=== PATIENT | female | born 1965 | race Caucasian/White ===

== ENCOUNTER 2016-10-11 07:54 | Outpatient (CLI) | payer OTHER | END 2016-10-11 18:44 | disposition home or self-care (01) | LOC: SRD 07:54 | DX: K21.9 Gastro-esophageal reflux disease without esophagitis (principal) | CPT/HCPCS: 74220-TC; 74246 ==

== ENCOUNTER 2018-03-18 09:22 | Inpatient (IN) | payer OTHER ==
[~2018-03-18] VITALS: Ht 162.6 cm; Wt 90.7 kg
[2018-03-18 09:26] VITALS: BP_SYST 127
--- NOTE | 2018-03-18 09:30 | NUR ---
supervisor shuttle fitting Pt complaining of upper center abdominal pain 04/20, radiating down to her right lower back. AA&Ox4, speaks Turkmen and is cooperative. VS stable on room air, no SOB, breathing equal and unlabored. Pt ambulates without assist. Pt's at bedside.
--- NOTE | 2018-03-18 09:30 | NUR ---
Ambulatory to bed 6
--- NOTE | 2018-03-18 09:38 | NUR ---
VS stable on room air, PT complaining of sharp upper abdominal pain 9/10 which radiates to lower right back
--- NOTE | 2018-03-18 09:39 | NUR ---
Dr. Rodriguez at bedside, assessing PT
[2018-03-18] MEDS ORDERED: NACL 0.9% 1,000 ML IV ONE (09:44)
[2018-03-18] MEDS ORDERED: MORPHINE 4 MG/ML INJ. SYRINGE IVP ONE (09:45)
[2018-03-18] MEDS ORDERED: ONDANSETRON HCL 4 MG/2 ML VIAL IVP ONE (09:45)
[2018-03-18 10:04] LABS: BILIRUBIN,URINE NEGATIVE (NEGATIVE); CLARITY/URINE CLEAR (CLEAR); COLOR,URINE YELLOW (YELLOW); GLUCOSE,URINE NEGATIVE (NEGATIVE); KETONES,URINE NEGATIVE (NEGATIVE); LEUKOCYTE ESTERASE ,URINE NEGATIVE (NEGATIVE); NITRITE, URINE NEGATIVE (NEGATIVE); PROTEIN URINE NEGATIVE (NEGATIVE); UROBILINOGEN,URINE 0.2 (0.2-1.0)
[2018-03-18 10:05] LABS: BLOOD, URINE TRACE (NEGATIVE)
[2018-03-18 10:09] LABS: BASOPHILS # (AUTO) 0.1 K/uL (0.0-0.2); BASOPHILS % (AUTO) 0.6 % (0.0-2.0); EOSINOPHILS # (AUTO) 0.1 K/uL (0.0-0.4); EOSINOPHILS % (AUTO) 0.4 % (0.0-4.0); HEMATOCRIT 39.7 % (36-48); HEMOGLOBIN 13.7 g/dL (12.0-16.0); LYMPHOCYTES # (AUTO) 1.2 K/uL (1.0-5.5); LYMPHOCYTES % (AUTO) 8.5 % (20.5-51.5); MEAN CORPUSCULAR HEMOGLOBIN 32 pg (27-31); MEAN CORPUSCULAR HGB CONC 34 % (32-36); MEAN CORPUSCULAR VOLUME 92 fL (79.0-98.0); MONOCYTES # (AUTO) 0.6 K/uL (0.0-1.0); MONOCYTES % (AUTO) 4.4 % (1.7-9.3); NEUTROPHILS # (AUTO) 12.6 K/uL (1.8-7.7); NEUTROPHILS % (AUTO) 86.1 % (40.0-70.0); PLATELET COUNT (AUTO) 264 K/uL (130-430); RED BLOOD CELL COUNT(AUTO) 4.32 MIL/uL (4.2-6.2); RED CELL DISTRIBUTION WIDTH 12.4 % (9.0-15.0); WHITE BLOOD COUNT (AUTO) 14.6 K/uL (4.8-10.8)
[2018-03-18 10:13] LABS: CREATININE 0.85 mg/dL (0.55-1.30); POTASSIUM 3.8 mmol/L (3.5-5.1)
[2018-03-18 10:19] LABS: ALBUMIN 3.4 g/dL (3.4-4.8); TOTAL BILIRUBIN 0.8 mg/dL (0.0-1.0)
[2018-03-18] MEDS ORDERED: BUPR300T55 PO (10:28)
[2018-03-18] MEDS ORDERED: ARIP20TA4 PO (10:29)
[2018-03-18] MEDS ORDERED: LAMO200T2 PO (10:33)
[2018-03-18] MEDS ORDERED: TRAZ-123 PO (10:33)
[2018-03-18] MEDS ORDERED: BUSP5TAB3 PO (10:33)
[2018-03-18] MEDS ORDERED: PRAZ5CAP2 PO (10:33)
[2018-03-18] MEDS ORDERED: [UNRECOGNIZED DRUG - CODE] PO (10:38)
[2018-03-18] MEDS ORDERED: DITXL5 PO (10:38)
[2018-03-18] MEDS ORDERED: LIP40 PO (10:38)
[2018-03-18] MEDS ORDERED: HYDR12.55 PO (10:38)
--- NOTE | 2018-03-18 10:40 | NUR ---
pt off unit to radiology
[2018-03-18] MEDS ORDERED: FEXO-25 PO (10:41)
[2018-03-18] MEDS ORDERED: ASA81 PO (10:41)
--- NOTE | 2018-03-18 10:48 | NUR ---
pt returned from radiology to bed 6
[2018-03-18] MEDS ORDERED: PANTOPRAZOLE SODIUM 40 MG/VIAL (PROTONIX) IVP ONE (11:45)
--- NOTE | 2018-03-18 11:52 | NUR ---
Ultrasound at bedside.
--- NOTE | 2018-03-18 12:14 | NUR ---
ADMISSION NOTE Received patient from ER via maame, received report from Odell ELIZABETH. Patient admitted with diagnosis of Acute appendicitis. Patient oriented to hospital routine, call light, toileting and safety-patient verbalized understanding. Addendum: 03/18/18 at 1256 by Kizzy Johnson RN Patient educated on pain management, safety; pre operative health teaching early ambulation , use of incentive spirometer , proper handwashing ,incision care., activity verbalized understanding.
--- NOTE | 2018-03-18 12:20 | NUR ---
Patient will be admitted to care of Dr. Clements. Admitted to medsur unit. Will go to room 134a. Belongings list completed. Summary report printed. Report will be given at bedside. Transfer to [facility]. IV present no sign or symptom of infiltration.
[2018-03-18 12:25] VITALS: BP_SYST 124
[2018-03-18] MEDS: MORPHINE 4 MG/ML INJ. SYRINGE IVP PRN ×2 (12:43→21:44)
--- NOTE | 2018-03-18 13:13 | NUR ---
Initial physical notes: Patient alert, awake and oriented. Stable. Ambulatory. Incision site of L breast healed from surgery last January 2018. Skin intact, no skin issues. Safety measures in placed. Call light within reach.
[2018-03-18] MEDS: KCL 20 mEq in D5/0.45NS 1000mL 1,000 ML IV SCH (14:02)
[2018-03-18] MEDS: cefOXitin SODIUM 1 GM in D5W 50 ML IV SCH ×3 (14:03→23:11)
[2018-03-18] MEDS: metroNIDAZOLE 500 mg/NS 100 ML IV SCH ×2 (14:03→21:45)
--- NOTE | 2018-03-18 14:17 | NUR ---
Krista rounds: Seen by Dr. Perdomo and talk to patients.
[2018-03-18 15:14] LABS: PROTHROMBIN TIME 9.8 SECS (9.5-12.5)
--- NOTE | 2018-03-18 15:15 | NUR ---
Krista rounds: Seen by Dr. Clements and explained to the patient the surgery with at bedside.
--- NOTE | 2018-03-18 15:30 | NUR ---
[facility]
[2018-03-18] MEDS ORDERED: LR 1,000 ML IV SCH (16:16)
[2018-03-18] MEDS ORDERED: HYDROmorphone 1 MG INJ. 1 MG/ML AMPUL IVP PRN ×2 (16:30)
[2018-03-18] MEDS ORDERED: METOCLOPRAMIDE HCL 10 MG/2 ML VIAL IVP PRN (16:30)
[2018-03-18] MEDS ORDERED: HYDROmorphone 2 MG/ML VIAL IVP PRN (16:30)
[2018-03-18] MEDS ORDERED: NEOSTIGMINE METHYLSULFATE 1 MG/ML, 10 ML VIAL ONE (16:50)
[2018-03-18] MEDS ORDERED: NS IRRIG SOLN 1000 ML IR ONE (16:50)
[2018-03-18] MEDS ORDERED: MIDAZOLAM HCL 5 MG/ML VIAL (VERSED) IV ONE (16:50)
[2018-03-18] MEDS ORDERED: fentaNYL CITRATE 250 MCG/5 ML AMP ONE (16:50)
[2018-03-18] MEDS ORDERED: ONDANSETRON HCL 4 MG/2 ML VIAL ONE (16:50)
[2018-03-18] MEDS ORDERED: ROCURONIUM BROMIDE 10 MG/ML (ZEMURON) ONE (16:50)
[2018-03-18] MEDS ORDERED: GLYCOPYRROLATE 0.2 MG/ML VIAL ONE (16:50)
[2018-03-18] MEDS ORDERED: SEVOFLURANE 15 MIN GAS INH ONE (16:50)
[2018-03-18] MEDS ORDERED: LR 1,000 ML IV.SOLN IV ONE (16:50)
[2018-03-18] MEDS ORDERED: PROPOFOL 200MG/ 20ML VIAL (DIPRIVAN) IV ONE (16:50)
--- NOTE | 2018-03-18 18:07 | NUR ---
Patient back in her room. Stable. Abdominal incision site dressing clean, dry and intact.
--- NOTE | 2018-03-18 18:30 | NUR ---
Incentive spirometer: Incentive spirometer at 1500 level. Encourage patient to use it.
--- NOTE | 2018-03-18 19:00 | NUR ---
Closing notes: Patient resting on bed with at bedside. Stable. Needs attended. Abdominal dressing intact. SCD in placed. Safety measures in placed. Call light within reach. Report given to GLENN Aguilar.
[2018-03-18 20:00] VITALS: BP_SYST 93
--- NOTE | 2018-03-18 20:00 | NUR ---
Initial PM Note Pt is lying comfortably in bed fully awake, alert and oriented x4. Speech is clear. Pt's is visiting at the bedside. Right lower quadrant abdominal dressing is dry and intact. No c/o pain or discomfort at this time. Pt was encouraged to use IS 10x Q 1hr WA and pt verbalized understanding. Pt's IS usage is up to 1500ml. IVF of D51/2NS + 20meq KCL is infusing well in LAC at 80mls/hr without any signs of infiltration. Fall and safety precautions are in place. Pt was instructed to call for assistance as needed and pt verbalized understanding. Call light is with pt and bed alarm is on.
--- NOTE | 2018-03-18 20:55 | NUR ---
Ambulation Pt ambulated to the bathroom with US MARKETING DIRECTOR's assistance and voided some urine. Pt also ambulated to the Nurse's Station area and back to her bed with US MARKETING DIRECTOR's assistance.
--- NOTE | 2018-03-18 21:44 | NUR ---
Pain Medication Morphine 4mg was given IV for c/o RLQ abdominal incisional pain with relief. Pt was instructed to call for assistance before getting OOB and pt verbalized understanding. Call light is with pt and bed alarm is on.
--- NOTE | 2018-03-19 | NUR ---
Rounds Pt is resting quietly in bed. Abdominal dressing is dry and intact. IVF is infusing well in LAC. Call light is with pt and bed alarm is on.
[2018-03-19 00:30] VITALS: BP_SYST 98
[2018-03-19] MEDS: KCL 20 mEq in D5/0.45NS 1000mL 1,000 ML IV SCH ×2 (02:30→14:27)
[2018-03-19] MEDS: MORPHINE 4 MG/ML INJ. SYRINGE IVP PRN ×6 (02:48→17:29)
--- NOTE | 2018-03-19 04:00 | NUR ---
Rounds Pt is resting quietly in bed/ IVF is infusing well in LAC. Call light is with pt and bed alarm is on.
[2018-03-19] MEDS: cefOXitin SODIUM 1 GM in D5W 50 ML IV SCH ×4 (05:19→23:32)
[2018-03-19] MEDS: metroNIDAZOLE 500 mg/NS 100 ML IV SCH ×3 (05:48→21:38)
--- NOTE | 2018-03-19 06:30 | NUR ---
Closing Note Pt is resting quietly in bed. RLQ abdominal dressing remains dry and intact. IVF is infusing well in LAC. Will endorse to day shift nurse.
[2018-03-19 06:41] LABS: BASOPHILS % (AUTO) 0.2 % (0.0-2.0); EOSINOPHILS % (AUTO) 0.4 % (0.0-4.0); HEMATOCRIT 34.4 % (36-48); HEMOGLOBIN 11.9 g/dL (12.0-16.0); LYMPHOCYTES # (AUTO) 1.7 K/uL (1.0-5.5); LYMPHOCYTES % (AUTO) 14.8 % (20.5-51.5); MEAN CORPUSCULAR HEMOGLOBIN 33 pg (27-31); MEAN CORPUSCULAR HGB CONC 35 % (32-36); MEAN CORPUSCULAR VOLUME 95 fL (79.0-98.0); MONOCYTES # (AUTO) 0.9 K/uL (0.0-1.0); MONOCYTES % (AUTO) 7.6 % (1.7-9.3); NEUTROPHILS # (AUTO) 9.2 K/uL (1.8-7.7); PLATELET COUNT (AUTO) 203 K/uL (130-430); RED BLOOD CELL COUNT(AUTO) 3.62 MIL/uL (4.2-6.2); RED CELL DISTRIBUTION WIDTH 12.6 % (9.0-15.0); WHITE BLOOD COUNT (AUTO) 11.8 K/uL (4.8-10.8)
[2018-03-19 06:48] LABS: CALCIUM 7.8 mg/dL (8.4-11.0); CREATININE 0.86 mg/dL (0.55-1.30); POTASSIUM 3.5 mmol/L (3.5-5.1)
--- NOTE | 2018-03-19 07:25 | NUR ---
Opening note Patient a/ox3, crying in bed. States her pain level is 8/10. Vital signs taken. Patient Ambulated to bathroom with assistance. at bedside. Extensions of RN, STONE LAYER and electrician written on white board. Plan of care discussed with patient. Safety precautions in order, call light in reach and bed alarm on.
--- NOTE | 2018-03-19 07:40 | NUR ---
Dr Clements rounds Assesses patient's incision. States he will change morphine to every two hours for patient pain control.
[2018-03-19 08:20] VITALS: BP_SYST 122
[2018-03-19] MEDS: PANTOPRAZOLE SODIUM 40 MG/VIAL (PROTONIX) IVP SCH (09:02)
--- NOTE | 2018-03-19 09:14 | NUR ---
Nutrition Update Kaydne Scale 18 noted. Pt admitted for acute appendicitis. Diet: full liquid BMI: 34.3 kg/m2 RD to follow per nutrition care standards.
--- NOTE | 2018-03-19 09:30 | NUR ---
AMBULATING PATIENT AMBULATING AROUND MST UNIT. STATES AMBULATING TO BATHROOM AND AROUND IS EXTREMELY PAINFUL. ESCORTED BACK TO BED.
--- NOTE | 2018-03-19 11:20 | NUR ---
PATIENT RESTING: Patient resting quietly. No acute distress noted. Vital signs within normal range. at bedside.
--- NOTE | 2018-03-19 12:50 | NUR ---
Pain Patient complains of abdominal pain 03/20. morphine 4mg IVP administered at this time. Will continue to monitor pain management.
[2018-03-19 13:25] VITALS: BP_SYST 97
--- NOTE | 2018-03-19 15:23 | NUR ---
Pain Patient complains of abdominal pain 03/20. morphine 4mg IVP administered at this time. Will continue to monitor pain management.
[2018-03-19 16:38] VITALS: BP_SYST 100
--- NOTE | 2018-03-19 17:44 | NUR ---
Dr Clements paged Patient's asks if patient has been taking her at home meds. Med rec checked and has not been reconciled by MD. paged to reconcile medications.
--- NOTE | 2018-03-19 17:58 | NUR ---
Dr Clements Called back Stated to continue all medications except aspirin and valacyclovir. Medication reconciliation completed.
--- NOTE | 2018-03-19 18:30 | NUR ---
Closing Note Patient a/ox3, no complaints of pain or difficulty breathing on room air. All needs met throughout shift. Will endorse plan of care to noc shift. safety precautions in order, call light in reach and bed alarm on.
--- NOTE | 2018-03-19 19:20 | NUR ---
OPENING NOTE RECEIVED PT AND REPORT FROM DAY SHIFT. PT IS SITTING AWAKE IN BED. AT BEDSIDE. PT SPEAKS SWEDISH AND IS HAPRAL TO VERBALIZED NEEDS. PT ON ROOM AIR. IV IS INTACT AND RUNNING IVF PER ORDERS. FALL AND SAFETY PRECAUTIONS IN PLACE. BED LOCKED IN LOWEST POSITION. EDUCATED PT ON INCENTIVE SPIROMETER USE, PT VERBALIZED UNDERSTANDING. CALL LIGHT WITH PT. WILL CONTINUE TO MONITOR.
[2018-03-19 20:00] VITALS: BP_SYST 108
--- NOTE | 2018-03-19 20:30 | NUR ---
IV INSERTION INSERTED 22 GAUGE TO LEFT FOREARM. PT TOLERATED WELL. WILL CONTINUE TO MONITOR.
[2018-03-19] MEDS: busPIRone HCL 5 MG TABLET PO SCH (20:46)
[2018-03-19] MEDS: traZODone HCL 50 MG TABLET (DESYREL) PO SCH (20:46)
[2018-03-19] MEDS: LamoTRIgine 100 MG TABLET PO SCH (20:46)
--- NOTE | 2018-03-19 20:46 | NUR ---
MEDICATION ADMINISTERED MEDICATION PER ORDERS. EDUCATED PT ON MEDICATIONS. PT VERBALIZED UNDERSTANDING. WILL CONTINUE TO MONITOR.
[2018-03-19] MEDS: OXYBUTYNIN CHLORIDE 5 MG TABLET PO SCH (20:47)
[2018-03-19] MEDS: ATORVASTATIN 20 MG TABLET PO SCH (20:47)
[2018-03-19] MEDS: PRAZOSIN HCL 1 MG CAPSULE PO SCH (21:00)
[2018-03-20 00:52] VITALS: BP_SYST 119
[2018-03-20] MEDS: ONDANSETRON HCL 4 MG/2 ML VIAL IVP PRN ×3 (02:39→20:13)
[2018-03-20] MEDS: MORPHINE 4 MG/ML INJ. SYRINGE IVP PRN ×3 (02:44→16:54)
--- NOTE | 2018-03-20 02:48 | NUR ---
PRN PAIN AND NAUSEA MEDICATION ADMINISTERED PRN PAIN AND NAUSEA MEDICATION. BROUGHT PATIENT AN EMESIS BASIN AND ICE PACKS. WILL CONTINUE TO MONITOR.
[2018-03-20] MEDS: KCL 20 mEq in D5/0.45NS 1000mL 1,000 ML IV SCH ×2 (03:30→13:31)
--- NOTE | 2018-03-20 04:20 | NUR ---
NAUSEA PT IS EXPERIENCING NAUSEA. PT HAS NOT VOMITED. PROVIDED PT WITH ICE PACKS. NO OTHER NEEDS. WILL CONTINUE TO MONITOR.
[2018-03-20] MEDS: cefOXitin SODIUM 1 GM in D5W 50 ML IV SCH ×4 (05:21→23:35)
--- NOTE | 2018-03-20 05:21 | NUR ---
IV ABX/ DRY HEAVING ADMINISTERED IV ABX PER ORDERS. PT IS DRY HEAVING. SMALL AMOUNT OF SPIT NOTED TO EMESIS BASIN.
[2018-03-20] MEDS: metroNIDAZOLE 500 mg/NS 100 ML IV SCH ×3 (05:52→21:04)
--- NOTE | 2018-03-20 05:56 | NUR ---
IV ABX ADMINISTERED IV ABX PER ORDERS. ACQUISITION PROFESSIONAL CALLED SECURITY TO COOL DOWN ROOM, PER PT REQUEST.
[2018-03-20 06:38] LABS: BASOPHILS % (AUTO) 0.3 % (0.0-2.0); EOSINOPHILS # (AUTO) 0.2 K/uL (0.0-0.4); EOSINOPHILS % (AUTO) 2.1 % (0.0-4.0); HEMATOCRIT 32.5 % (36-48); HEMOGLOBIN 11.6 g/dL (12.0-16.0); LYMPHOCYTES # (AUTO) 1.4 K/uL (1.0-5.5); LYMPHOCYTES % (AUTO) 12.2 % (20.5-51.5); MEAN CORPUSCULAR HEMOGLOBIN 33 pg (27-31); MEAN CORPUSCULAR HGB CONC 36 % (32-36); MEAN CORPUSCULAR VOLUME 93 fL (79.0-98.0); MONOCYTES # (AUTO) 0.8 K/uL (0.0-1.0); MONOCYTES % (AUTO) 7.2 % (1.7-9.3); NEUTROPHILS # (AUTO) 8.8 K/uL (1.8-7.7); NEUTROPHILS % (AUTO) 78.2 % (40.0-70.0); PLATELET COUNT (AUTO) 218 K/uL (130-430); RED BLOOD CELL COUNT(AUTO) 3.52 MIL/uL (4.2-6.2); RED CELL DISTRIBUTION WIDTH 12.2 % (9.0-15.0); WHITE BLOOD COUNT (AUTO) 11.2 K/uL (4.8-10.8)
--- NOTE | 2018-03-20 06:45 | NUR ---
CLOSING NOTE ENDORSED CARE AND REPORT TO DAY SHIFT NURSE. PT IS SITTING UP AT SIDE OF BED AT THIS TIME. ALL NEEDS MET THROUGHOUT SHIFT. PT IN STABLE CONDITION. PT CONTINUES TO DRY HEAVE. PT MEDICATED FOR PAIN DURING SHIFT. FALL AND SAFETY PRECAUTIONS MAINTAINED. IV INTACT AND RUNNING IVF PER ORDERS. CALL LIGHT WITH PT.
[2018-03-20 06:48] LABS: CALCIUM 8.2 mg/dL (8.4-11.0); CREATININE 0.75 mg/dL (0.55-1.30); POTASSIUM 3.8 mmol/L (3.5-5.1)
--- NOTE | 2018-03-20 07:39 | NUR ---
Initial note Pt awake, alert and oriented x4, breathing even and unlabored. VSS. Pt states she has been dry heaving this morning, is feeling nauseas. Reports pain at a 4/10. Pt is requesting zofran for nausea but refuses pain medication. IV to LFA 22g infusing d5 1/2 ns + 20meq Potassium at 80ml/hr. IV site patent, no s/s of infiltration noted. Plan of care discussed with patient, pt verbalized understanding, safety precaution in place, call light within reach, at bedside, will follow up with nausea medication
[2018-03-20 08:03] VITALS: BP_SYST 113
[2018-03-20] MEDS: PANTOPRAZOLE SODIUM 40 MG/VIAL (PROTONIX) IVP SCH (08:24)
[2018-03-20] MEDS: LORATADINE 10 MG TABLET PO SCH (08:24)
[2018-03-20] MEDS: HYDROCHLOROTHIAZIDE 12.5 MG CAPSULE (HCTZ) PO SCH (08:24)
[2018-03-20] MEDS: busPIRone HCL 5 MG TABLET PO SCH ×2 (08:25→20:40)
[2018-03-20] MEDS: buPROPion HCL 150 MG XL TAB PO SCH (08:25)
[2018-03-20] MEDS: LamoTRIgine 100 MG TABLET PO SCH ×2 (08:25→20:41)
[2018-03-20] MEDS: ARIPiprazole 5 MG TAB PO SCH (08:26)
[2018-03-20] MEDS: OXYBUTYNIN CHLORIDE 5 MG TABLET PO SCH ×2 (08:26→20:41)
--- NOTE | 2018-03-20 08:40 | NUR ---
Med Pass/ Nausea/vomiting Pt sitting up in bed, states she was able to tolerate a few sips of coffee and ensure. am medications reviewed with patient and give, zofran administered per pt complaint of nausea. As I was exiting room, pt began to vomit. Pt cleaned once nausea subsided, assisted to get comfortable, call light within reach, at bedside, will follow up
--- NOTE | 2018-03-20 10:30 | NUR ---
Pt seen walking around unit, noted she had stopped and hunched over, pt states she is feeling lightheaded. wheel chair retrieved, pt assisted to chair and returned to bed, VSS, no hypotension noted. pt states she would like pain medication now and to rest. will follow up with pain medication, at bedside, call light in hand
[2018-03-20 12:00] VITALS: BP_SYST 112
--- NOTE | 2018-03-20 13:30 | NUR ---
IV Antibiotic iv antibiotic flagyl hanged, iv site patent and intact, no s/s of infiltration noted. at bedside, no s/s of distress or complaint of pain at this time, pt states she is going to try and walk a little again, pt encouraged to call rn for assistance so that i can walk with the wheelchair at hand in case she feels dizzy, and patient verbalize understanding, call light within reach, will follow up
--- NOTE | 2018-03-20 15:48 | NUR ---
Walked patient Pt able to walk down the hallway and back, tolerated walk well, no nausea or lightheadedness, no complaint of pain, pt returned to room, sitting in bedside chair, call light within reach, at bedside, will continue to monitor pt closely
[2018-03-20 16:00] VITALS: BP_SYST 115
--- NOTE | 2018-03-20 17:08 | NUR ---
Pain management/ IV antibiotic pt complains of pain 7/10 to abdomen after walk, pain management provided. IV antibiotic hanged. iv site patent and intact, no s/s of infiltration noted, at bedside, pt able to reach 2000 on I.S. Call light within reach
--- NOTE | 2018-03-20 18:40 | NUR ---
CLOSING NOTE PT LAYING IN BED, AWAKE, ALERT, NO S/S OF ACUTE DISTRESS OR PAIN, VSS, IVF INFUSING AT ORDERED RATE, IV SITE INTACT, ALL NEEDS ATTENDED TO THROUGHOUT SHIFT, SAFETY PRECAUTIONS MAINTAINED, CALL LIGHT WITHIN REACH, AT BEDSIDE, WILL GIVE REPORT TO FOLLOWING SHIFT
--- NOTE | 2018-03-20 19:39 | NUR ---
Initial Note Received patient awake, alert and oriented with at the bedside. Standing and has been walking around the unit few minutes ago. No SOB noted. Denies any pain or n/v at this time. Encouraged to ambulate more often since patient hasn't passed gas yet but burped per AM shift nurse. Abdomen is slightly distended but soft. Ambulates well with steady gait. IVF infusing with patent IV line. Skin intact and no peripheral edema noted. SCDs are off because patient is ambulating at this time. Care and monitoring will be provided. Call light within reach. Needs attended. Patient and her planning to walk around the unit. Safety and fall precautions observed.
[2018-03-20 20:00] VITALS: BP_SYST 100
--- NOTE | 2018-03-20 20:13 | NUR ---
Pt n/v Patient complained of nausea and had 1 episode of vomiting mostly saliva. at the bedside. Medicated for n/v and will continue to monitor.
--- NOTE | 2018-03-20 20:20 | NUR ---
PAGE CALLED FOR DR. KNAPP. SPOKE TO CHOCO, DIALED [phone].
--- NOTE | 2018-03-20 20:40 | NUR ---
called back Dr. Clements called back and asked for a medication to hep patient pass gas per patient's request. Dr. Clements didn't order any medication and advised to tell patient and family to let the situation run its course. Notified patient and Manpreet (patient's ) and they understood.
[2018-03-20] MEDS: traZODone HCL 50 MG TABLET (DESYREL) PO SCH (20:41)
[2018-03-20] MEDS: ATORVASTATIN 20 MG TABLET PO SCH (20:41)
[2018-03-20] MEDS: PRAZOSIN HCL 1 MG CAPSULE PO SCH (21:00)
--- NOTE | 2018-03-20 21:00 | NUR ---
RN Note No more complain of nausea and able to take her bedtime meds. Tolerated pills well. Patient had a bed bath and oral care done. Bowel sound active and hasn't passed gas yet. Will continue to monitor. Patient walked several rounds around the unit. Needs attended. Refused to have SCDs on at this time. Kept clean, dry and comfortable.
[2018-03-20] MEDS: HYDROcodone/ACETAMIN 10-325 MG TAB PO PRN (21:02)
--- NOTE | 2018-03-20 23:30 | NUR ---
RN Note Patient arousable. No complain of pain or n/v at this time. IV antibiotic given. Assisted patient to turn on her side. Needs attended. Bed alarm on and at lowest position. Call light within reach. Kept warm and comfortable.
[2018-03-21] MEDS: HYDROcodone/ACETAMIN 10-325 MG TAB PO PRN ×3 (00:51→09:29)
--- NOTE | 2018-03-21 01:00 | NUR ---
RN Note Assisted patient to the bathroom and back to bed with steady gait and no SOB. Complain of moderate abdominal/gas pain. Medicated for pain and will continue to monitor. IVF infusing. Patient hasn't passed gas yet and no c/o of n/v. Kept warm and comfortable.
[2018-03-21 01:20] VITALS: BP_SYST 116
[2018-03-21] MEDS: KCL 20 mEq in D5/0.45NS 1000mL 1,000 ML IV SCH (03:45)
--- NOTE | 2018-03-21 03:50 | NUR ---
RN Note Assisted patient to the bathroom and back to bed with steady gait and no SOB. Complain of mild abdominal pain. Patient states that her abdomen is not that distended anymore, she most likely passed gas when she was asleep. Kept her warm and comfortable.
[2018-03-21] MEDS: cefOXitin SODIUM 1 GM in D5W 50 ML IV SCH (04:58)
[2018-03-21] MEDS: metroNIDAZOLE 500 mg/NS 100 ML IV SCH (05:43)
--- NOTE | 2018-03-21 06:26 | NUR ---
End Note Afebrile. VS stable. No complain of pain, SOB or n/v at this time. Had one episode of n/v last night and medicated for pain twice all night. Ambulates to the bathroom with steady gait and assist. Able to pass gas twice (witnessed) and abdomen is less distended compared last night. IVF infusing. Incision on RLQ abdomen clean and dry, no drainage noted. No BP/bld draw on left arm. Care and monitoring provided per protocol. Needs attended. Call light within reach. Bed alarm on and at lowest position at all times. Kept clean, dry and comfortable.
[2018-03-21 06:29] LABS: BASOPHILS % (AUTO) 0.4 % (0.0-2.0); CALCIUM 8.1 mg/dL (8.4-11.0); CREATININE 0.79 mg/dL (0.55-1.30); EOSINOPHILS # (AUTO) 0.3 K/uL (0.0-0.4); HEMOGLOBIN 11.6 g/dL (12.0-16.0); LYMPHOCYTES # (AUTO) 1.1 K/uL (1.0-5.5); LYMPHOCYTES % (AUTO) 12.9 % (20.5-51.5); MEAN CORPUSCULAR HEMOGLOBIN 33 pg (27-31); MEAN CORPUSCULAR HGB CONC 35 % (32-36); MEAN CORPUSCULAR VOLUME 94 fL (79.0-98.0); MONOCYTES # (AUTO) 0.5 K/uL (0.0-1.0); MONOCYTES % (AUTO) 6.3 % (1.7-9.3); NEUTROPHILS # (AUTO) 6.8 K/uL (1.8-7.7); NEUTROPHILS % (AUTO) 77.4 % (40.0-70.0); PLATELET COUNT (AUTO) 206 K/uL (130-430); POTASSIUM 3.7 mmol/L (3.5-5.1); RED BLOOD CELL COUNT(AUTO) 3.52 MIL/uL (4.2-6.2); WHITE BLOOD COUNT (AUTO) 8.7 K/uL (4.8-10.8)
--- NOTE | 2018-03-21 08:00 | NUR ---
Initial note Pt laying in bed, resting, easy to arouse, no s/s of acute distress or pain, vss. IVF infusing to LFA 22 g at ordered rate, no s/s of infiltration noted, iv to lac 20 saline locked, dressing to abd clean dry and intact. plan of care discussed, pt verbalized understanding, safety precautions in place, call light within reach, will follow up
[2018-03-21 08:26] VITALS: BP_SYST 109
[2018-03-21] MEDS: HYDROCHLOROTHIAZIDE 12.5 MG CAPSULE (HCTZ) PO SCH (09:00)
[2018-03-21] MEDS ORDERED: HYDR-2489 PO (09:13)
[2018-03-21] MEDS ORDERED: AMOX-423 PO (09:13)
[2018-03-21] MEDS: PANTOPRAZOLE SODIUM 40 MG/VIAL (PROTONIX) IVP SCH (09:28)
[2018-03-21] MEDS: LORATADINE 10 MG TABLET PO SCH (09:29)
[2018-03-21] MEDS: ARIPiprazole 5 MG TAB PO SCH (09:29)
[2018-03-21] MEDS: busPIRone HCL 5 MG TABLET PO SCH (09:29)
[2018-03-21] MEDS: OXYBUTYNIN CHLORIDE 5 MG TABLET PO SCH (09:30)
[2018-03-21] MEDS: LamoTRIgine 100 MG TABLET PO SCH (09:31)
[2018-03-21] MEDS: buPROPion HCL 150 MG XL TAB PO SCH (09:31)
--- NOTE | 2018-03-21 09:54 | NUR ---
PAGED PAGED HARJINDER MICHEL AT [phone] SPOKE WITH CELENA.
--- NOTE | 2018-03-21 10:00 | NUR ---
EDUCATION DISCHARGE EDUCATION PROVIDED, PT MADE AWARE TO FOLLOW UP WITH DR KNAPP IN ONE WEEK, ADVANCE DIET TOLERATED, AND PAIN MANAGEMENT AT HOME, PT VERBALIZED UNDERSTANDING. PT STATED THE PHARMACY WILL NOTE FILL HER PRESCRIPTION FOR NORCO DUE TO PATIENT HAS ACTIVE PRESCRIPTION FOR TYLENOL#4, DR KNAPP STATED PT MAY USE THAT FOR PAIN MANAGEMENT POST OP ALSO
[2018-03-21 10:35] VITALS: BP_SYST 103
--- NOTE | 2018-03-21 10:36 | NUR ---
2ND PAGE OUT TO PAGED HARJINDER MICHEL AT [phone] SPOKE WITH LIBAN.
--- NOTE | 2018-03-21 11:06 | NUR ---
3RD PAGE OUT TO PAGED HARJINDER MICHEL AT [phone] SPOKE WITH EILEEN.
[2018-03-21 11:16] VITALS: BP_SYST 113
--- NOTE | 2018-03-21 11:20 | NUR ---
D/C Patient Patient given medication reconciliation form and D/C instructions. Exit Care provided. Patient verbalized understanding. MD discussed with patient the results and treatment provided. Ambulatory with steady gait for discharge to home. Patient in stable condition, ID band removed. IV catheter removed, intact and dressing applied, no active bleeding. Rx of NORCO given. Patient educated on pain management. All belongings sent with patient.
== END 2018-03-21 11:20 | disposition home or self-care (01) | DRG 854 ==
LOC: SED 09:22 → SMU 11:39
PROVIDERS: ADMIT Surgery; ATTEND Surgery
PROC: 0DTJ0ZZ Resection of Appendix, Open Approach (ICD-10-PCS; principal; 2018-03-18 15:30)
DX: A41.9 Sepsis, unspecified organism (principal); K35.80 Unspecified acute appendicitis; I10 Essential (primary) hypertension; F31.9 Bipolar disorder, unspecified; M19.90 Unspecified osteoarthritis, unspecified site; G62.9 Polyneuropathy, unspecified; K21.9 Gastro-esophageal reflux disease without esophagitis; E78.5 Hyperlipidemia, unspecified; E66.09 Other obesity due to excess calories; Z91.048 Other nonmedicinal substance allergy status; Z98.1 Arthrodesis status; Z90.49 Acquired absence of other specified parts of digestive tract; Z90.710 Acquired absence of both cervix and uterus; Z87.891 Personal history of nicotine dependence; Z91.041 Radiographic dye allergy status; Z68.34 Body mass index [BMI] 34.0-34.9, adult; Z85.3 Personal history of malignant neoplasm of breast; Z79.899 Other long term (current) drug therapy; Z79.82 Long term (current) use of aspirin; Z82.49 Family history of ischemic heart disease and other diseases of the circulatory system; Z83.3 Family history of diabetes mellitus; Z84.89 Family history of other specified conditions
CPT/HCPCS: 36415; 71045; 76830-TC; 76857; 80048; 80053; 81003; 83690-TC; 85025; 85610-TC; 87081; 88304; 93005; 96361; 96374; 96375; 99285; C9113; J0694; J2250; J2270; J2405; J2704; J2710; J3010; J3490; J7030; J7060; J7120

== ENCOUNTER 2018-08-20 20:44 | Emergency (ER) | payer OTHER ==
[~2018-08-20] VITALS: Ht 162.6 cm; Wt 88.5 kg
[~2018-08-20 20:44] MED LIST: AMOX-423 PO; ARIP20TA4 PO; BUPR300T55 PO; BUSP5TAB3 PO; DITXL5 PO; FEXO-25 PO; HYDR-2489 PO; HYDR12.55 PO; LAMO200T2 PO; LIP40 PO; PRAZ5CAP2 PO; TRAZ-123 PO; [UNRECOGNIZED DRUG - CODE] PO
[2018-08-20 20:50] VITALS: BP_SYST 135
--- NOTE | 2018-08-20 20:50 | NUR ---
Patient triaged and placed in waiting room. VSS and patient appears in no acute distress at this time. Accompanied by family, awaiting available bed, and MD notified of need for MSE.
--- NOTE | 2018-08-20 21:26 | NUR ---
Pt ambulatory to bed 3 for evaluation
[2018-08-20 21:38] LABS: BILIRUBIN,URINE NEGATIVE (NEGATIVE); BLOOD, URINE NEGATIVE (NEGATIVE); CLARITY/URINE HAZY (CLEAR); COLOR,URINE YELLOW (YELLOW); GLUCOSE,URINE NEGATIVE (NEGATIVE); KETONES,URINE NEGATIVE (NEGATIVE); LEUKOCYTE ESTERASE ,URINE NEGATIVE (NEGATIVE); NITRITE, URINE NEGATIVE (NEGATIVE); PROTEIN URINE NEGATIVE (NEGATIVE)
[2018-08-20 21:39] LABS: UROBILINOGEN,URINE 0.2 (0.2-1.0)
[2018-08-20 21:43] LABS: BACTERIA,URINE FEW /HPF (None Seen); RBC,URINE 0-3 /HPF (0-3); WBC,URINE 0-3 /HPF (0-3)
[2018-08-20 21:44] LABS: MUCUS,URINE None Seen /LPF (None Seen); YEAST,URINE None Seen /HPF (None Seen)
--- NOTE | 2018-08-20 21:45 | NUR ---
Roula james in [facility] - 08/20/18 at 2303 by [email or web address] EARL Hammer at bedside examining patient.
--- NOTE | 2018-08-20 22:15 | NUR ---
PT came into the ED for complaing of constant epigastric pain that radiates for a few hours this evening. Pt states that she feels bloated but is unable to pass gas. Pt says that while she was in the ED, the pain has stopped. Pt also reports to have lower back pain. Denies n/v/d or fever. No other other complaints/injuries noted. Will cont. to monitor.
--- NOTE | 2018-08-20 23:03 | NUR ---
ER at bedside examining patient.
[2018-08-20 23:31] VITALS: BP_SYST 135
--- NOTE | 2018-08-20 23:31 | NUR ---
Patient given written and verbal discharge instructions and verbalizes understanding. ER MD Dr. Love discussed with patient the results and treatment provided. Patient in stable condition. ID arm band removed. Patient educated on pain management and to follow up with PMD within 2-3 days. Pain Scale 0/10. Opportunity for questions provided and answered. Medication side effect fact sheet provided.
== END 2018-08-20 23:31 | disposition home or self-care (01) ==
LOC: SED 20:44
DX: R10.13 Epigastric pain (principal); I10 Essential (primary) hypertension; F31.9 Bipolar disorder, unspecified; E78.5 Hyperlipidemia, unspecified; Z90.49 Acquired absence of other specified parts of digestive tract; Z90.89 Acquired absence of other organs; Z91.041 Radiographic dye allergy status; Z91.048 Other nonmedicinal substance allergy status; Z79.899 Other long term (current) drug therapy
CPT/HCPCS: 81000-TC; 99283